=== PATIENT | female | born 1955 | race Caucasian/White ===

== ENCOUNTER 2020-09-11 11:16 | Emergency (ER) | payer OTHER ==
[2020-09-11] MEDS ORDERED: DICLOFENAC SODI75 MG PO (12:55)
[2020-09-11] MEDS ORDERED: CYCLOBENZAPRINE10 MG PO (12:55)
[2020-09-11] MEDS ORDERED: PERCOCET 5-3251 EACH PO (14:49)
[2020-09-11] MEDS ORDERED: [UNRECOGNIZED DRUG - SUPPLY] EXT (14:52)
== END 2020-09-11 15:14 | disposition home or self-care (01) ==
LOC: FER 11:16
DX: S70.01XA Contusion of right hip, initial encounter (principal); W19.XXXA Unspecified fall, initial encounter; Y92.009 Unspecified place in unspecified non-institutional (private) residence as the place of occurrence of the external cause; Z91.048 Other nonmedicinal substance allergy status
CPT/HCPCS: 72100; 72131; 73502; 73700; J1885